=== PATIENT | male | born 1955 | race Caucasian/White ===

== ENCOUNTER → 2018-03-06 | Outpatient (CLI) | payer OTHER | LOC: M CARPUL 10:15 | DX: R01.1 Cardiac murmur, unspecified (principal) | CPT/HCPCS: 93306 ==

== ENCOUNTER → 2019-08-07 | Outpatient (CLI) | payer OTHER ==
--- NOTE | 2019-08-07 16:15 | REP ---
BILATERAL INGUINAL ULTRASOUND: Real-time sonographic evaluation of the inguinal canal was performed bilaterally, at rest and with Valsalva maneuver. There is no evidence of inguinal hernia bilaterally. Caliber of the inguinal canals is essentially unchanged between the resting phase and Valsalva maneuver. No mass or fluid collection is seen in these regions. IMPRESSION: No evidence of inguinal hernia bilaterally. Electronically Signed by Henrique Stark MD 08/07/2019 05:00 P
== END ==
LOC: M RAD 14:29
PROVIDERS: ATTEND Physician Assistant Medical
DX: R10.30 Lower abdominal pain, unspecified (principal)